=== PATIENT | male | born 1980 | race African-American/Black ===

== ENCOUNTER 2016-11-19 09:24 | Emergency (ER) | payer SELFPAY ==
[2016-11-19 09:52] LABS: BASOPHIL COUNT 0.1 K/uL (0-0.1); EOSINOPHIL (%) 1.7 % (0-5); EOSINOPHIL COUNT 0.2 K/uL (0-0.3); HEMATOCRIT 47.8 % (38.0-50.0); IMMATURE GRANULOCYTE (%) 0.5 % (0.0-0.7); IMMATURE GRANULOCYTE COUNT 0.1 K/uL; INSTRUMENT ABS NEUTROPHIL CT 6.3 K/uL; LYMPHOCYTE COUNT 2.8 K/uL (1.0-2.8); MCH 30.2 PG (29.0-34.0); MCHC 33.7 G/DL (30.0-36.0); MCV 89.7 FL (86-99); MEAN PLAT.VOLUME 9.7 uM^3 (9.0-12.4); MONOCYTE COUNT 0.5 K/uL (0-0.8); NEUTROPHIL (%) 63.9 % (45-76); NEUTROPHIL COUNT 6.3 K/uL (1.8-6.4); PLATELET COUNT 397 K/uL (156-360); RBC DIS.WIDTH-CV 13.2 % (11.8-14.6); RBC DIS.WIDTH-SD 43.3 % (39-53); RED BLOOD COUNT 5.33 M/uL (4.00-5.50); WHITE BLOOD COUNT 9.9 K/uL (4.1-10.2)
[2016-11-19 10:06] LABS: AMYLASE 113 IU/L (1-118); CHLORIDE 110 mEq/L (99-109); POTASSIUM 4.5 mEq/L (3.7-5.4); SODIUM 146 mEq/L (136-147)
[2016-11-19 10:08] LABS: GLUCOSE 104 mg/dL (70-99)
[2016-11-19 10:10] LABS: ANION GAP 11 MEQ/L (2-14)
[2016-11-19 10:11] LABS: SERUM ETHYL ALCOHOL 308 mg/dL
[2016-11-19 10:12] LABS: GFR ESTIMATE (CALCULATED) > 59 mL/min/
[2016-11-19 10:13] LABS: UREA NITROGEN (BUN) 9 mg/dL (9-23)
[2016-11-19 10:15] LABS: LIPASE 32 U/L (1.0-51.0)
== END 2016-11-19 13:47 | disposition home or self-care (01) ==
LOC: TRA 09:24
PROVIDERS: Emergency Medicine
PROC: 0HQ0XZZ Repair Scalp Skin, External Approach (ICD-10-PCS; principal; 2016-11-19)
DX: F10.129 Alcohol abuse with intoxication, unspecified (principal); S09.90XA Unspecified injury of head, initial encounter; S01.112A Laceration without foreign body of left eyelid and periocular area, initial encounter; Y04.2XXA Assault by strike against or bumped into by another person, initial encounter; M54.2 Cervicalgia; R10.9 Unspecified abdominal pain; R07.9 Chest pain, unspecified
CPT/HCPCS: 70450; 71260; 72125; 74177; 80048; 81003; 82150; 83690; 85025; 86900; 86901; 99281; 99285; G0480